=== PATIENT | female | born 1980 | race Caucasian/White ===

== ENCOUNTER 2017-02-12 20:42 | Emergency (ER) | payer SELFPAY ==
[2017-02-12 21:39] VITALS: BP 114/72
--- NOTE | 2017-02-12 23:04 | UC ---
Throat Pain/Nasal Savage HPI - History of Current Complaint Chief Complaint: UCRespiratory Stated Complaint: SORE THROAT Time Seen by Provider: 02/12/17 22:28 Hx Last Menstrual Period: 01/18/17 - Allergies/Home Medications Allergies/Adverse Reactions: Allergies Allergy/AdvReac Type Severity Reaction Status Date / Time No Known Allergies Allergy Verified 02/12/17 21:31 Home Medications: Home Medications Ibuprofen [Ibuprofen 200 MG] 600 mg PO Q6H PRN 02/12/17 [History Confirmed 02/12] PMH/Surg Hx/FS Hx/Imm Hx - Surgical History Surgical History: None - Social History Alcohol Use: Daily Alcohol Amount: 1-2 drinks/day Substance Use Type: None Smoking Status (MU): Current Some Day Smoker Type: Cigarettes Amount Used/How Often: couple of times a week Physical Exam Vital Signs: Initial Vital Signs Temp 98.7 F 02/12/17 21:33 Pulse 62 02/12/17 21:33 Resp 16 02/12/17 21:33 BP 114/72 02/12/17 21:33 Pulse Ox 100 02/12/17 21:33 Throat Pain/Nasal Course/Dx - Differential Dx/Diagnosis Differential Diagnosis/HQI/PQRI: Laryngitis, Mononucleosis, Pharyngitis, Sinusitis, Tonsillitis, URI Provider Diagnoses: mononucleosis Discharge - Discharge Plan Condition: Stable Disposition: HOME Patient Education Materials: Mononucleosis (ED), Laryngitis (ED) Forms: *Work Release Additional Instructions: Take aleve every 4-6 hours to help with discomfort and inflammation. Drink plenty of fluids. Use chloraseptic spray to help numb and soothe throat. Hot showers to breathe in humidified, steam and air. Get plenty of sleep and rest voice. If symptoms worsen such as increasing pain, fever, unable to swallow, difficulty breathing or new symptoms develop please seek medical attention promptly. Follow up with PCP or re-check at urgent care within the next week to ensure symptoms have improved.
== END 2017-02-12 23:06 | disposition home or self-care (01) ==
LOC: UCEAST 20:42
DX: B27.90 Infectious mononucleosis, unspecified without complication (principal); F17.210 Nicotine dependence, cigarettes, uncomplicated
CPT/HCPCS: 99201; G0463